=== PATIENT | female | born 1990 ===

== ENCOUNTER 2022-11-21 09:44 | Inpatient (IN) ==
[2022-11-15 11:02] LABS: Basophils # 0.1 10*3/uL (0.0-0.2); Basophils % 0.8 % (0.0-0.8); Eosinophils # 0.2 10*3/uL (0.0-0.87); Eosinophils % 3.3 % (0.00-10.9); Hemoglobin 13.3 GM/DL (12.0-16.0); Immature Granulocytes % 0.6 %; Immature Granulocytes Absolute 0.04 #; Lymphocytes # 2.3 10*3/uL (1.4-4.0); Lymphocytes % 34.8 % (21.3-54.2); Mean Corpuscular HGB Conc 33.3 GM/DL (32-36); Mean Corpuscular Volume 89.9 FL (87-102); Mean Platelet Volume 9.3 FL (9.6-12.0); Monocytes # 0.3 10*3/uL (0.11-0.8); Monocytes % 5.3 % (1.7-12.7); Neutrophils % 55.2 % (38.7-73.9); Platelet Count 355 T/CUMM (130-400); Red Blood Count 4.45 MC/CUMM (3.8-5.5); Red Cell Distribution Width 12.3 % (9.3-17.3); White Blood Count 6.46 T/CUMM (4-12)
[2022-11-15 11:12] LABS: Mucus,Urine Occasional /LPF (Occasional); RBC,Urine 1 /HPF (0-4); Squamous Epithelial Cell,Urine Few /HPF (0-10)
[2022-11-15 11:15] LABS: Albumin 3.9 G/DL (3.4-5.0); Bilirubin,Total 0.4 MG/DL (0.20-1.00); Calcium 9.8 MG/DL (8.5-10.1); Risk Ratio 7.16; Total Protein 8.2 G/DL (6.4-8.2); VLDL Cholesterol 65.6 MG/DL
[2022-11-15 11:18] LABS: Bilirubin,Urine Negative (Negative); Blood, Urine Moderate mg/dL (Negative); Glucose,Urine (UA) Negative (Negative); Ketones,Urine Negative (Negative); Nitrite,Urine Negative (Negative); Protein,Urine Trace mg/dL (Negative); Urine Appearance Clear (Clear); Urine Color Yellow (Yellow); Urine Specific Gravity >= 1.030 (1.001-1.035); Urine pH 5.5 (4.5-8.0)
[2022-11-15 11:19] LABS: Urine Urobilinogen 0.2 eU/dL (<2.0)
[~2022-11-21 09:44] MED LIST: LACTATED RINGERS 1,000 ML IV SCH
[2022-11-21] MEDS ORDERED: AMPICILLIN/SULBACTAM 3,000 MG in SODIUM CHLORIDE 0.9% 100 ML IV ONE (10:30)
[2022-11-21] MEDS ORDERED: FAMOTIDINE 20 MG TABLET PO ONE (11:12)
[2022-11-21] MEDS ORDERED: FAMOTIDINE 20 MG TABLET ONE (11:17)
[2022-11-21] MEDS ORDERED: LIDOCAINE 2% 5 ML VIAL ONE (12:59)
[2022-11-21] MEDS ORDERED: fentaNYL 100 MCG/2 ML VIAL ONE ×2 (12:59→14:46)
[2022-11-21] MEDS ORDERED: ROCURONIUM 50 MG/5 ML VIAL IV ONE ×2 (12:59→14:56)
[2022-11-21] MEDS ORDERED: propofoL 200 MG/20 ML VIAL IV ONE (12:59)
[2022-11-21] MEDS ORDERED: ONDANSETRON 4 MG/2 ML VIAL ONE (12:59)
[2022-11-21] MEDS ORDERED: MIDAZOLAM 2 MG/2 ML VIAL ONE (13:00)
[2022-11-21] MEDS ORDERED: SEVOFLURANE 1 UNIT/15 MINUTE INH ONE ×2 (13:09→15:26)
[2022-11-21] MEDS ORDERED: LIDOCAINE 1% 5 ML VIAL ONE (13:24)
[2022-11-21] MEDS ORDERED: BUPIVACAINE MPF 0.25% 30 ML VIAL ONE (13:24)
[2022-11-21] MEDS ORDERED: DEXAMETHASONE 4 MG/1 ML VIAL ONE ×2 (13:24→14:46)
[2022-11-21] MEDS ORDERED: ROPIVACAINE 0.5% 30 ML VIAL ONE (13:26)
[2022-11-21] MEDS ORDERED: SUCCINYLCHOLINE 200 MG/10 ML VIAL ONE (14:21)
[2022-11-21] MEDS ORDERED: LACTATED RINGERS 1,000 ML IV ONE (14:38)
[2022-11-21] MEDS ORDERED: ACETAMINOPHEN INJ 1,000 MG/100 ML VIAL IV ONE (14:48)
[2022-11-21] MEDS ORDERED: GLYCOPYRROLATE 0.4 MG/2 ML VIAL ONE (14:49)
[2022-11-21] MEDS ORDERED: NEOSTIGMINE 10 MG/10 ML VIAL ONE (14:49)
[2022-11-21] MEDS ORDERED: KETOROLAC 30 MG/1 ML VIAL ONE (15:12)
[2022-11-21 15:28] LABS: Protein,Urine Negative (Negative); Urine Appearance Clear (Clear); Urine Color Yellow (Yellow); Urine Specific Gravity 1.015 (1.001-1.035); Urine pH 5.5 (4.5-8.0)
[2022-11-21 15:29] LABS: Bilirubin,Urine Negative (Negative); Blood, Urine Negative (Negative); Glucose,Urine (UA) Negative (Negative); Ketones,Urine Negative (Negative); Nitrite,Urine Negative (Negative); Urine Urobilinogen 0.2 eU/dL (<2.0)
[2022-11-21 15:32] LABS: RBC,Urine <1 /HPF (0-4); Squamous Epithelial Cell,Urine Occasional /HPF (0-10)
[2022-11-21] MEDS ORDERED: ACETAMINOPHEN 325 MG TABLET PO PRN (15:43)
[2022-11-21] MEDS ORDERED: BENZOCAINE/MENTHOL LOZENGE 18/BOX PO PRN (15:43)
[2022-11-21] MEDS ORDERED: MAGNESIUM HYDROXIDE SUSP 30 ML UDCUP PO PRN (15:43)
[2022-11-21] MEDS ORDERED: BISACODYL 10 MG SUPP RECTAL PRN (15:43)
[2022-11-21] MEDS ORDERED: IBUPROFEN 800 MG TABLET PO PRN (15:43)
[2022-11-21] MEDS ORDERED: ONDANSETRON 4 MG/2 ML VIAL IV PRN (16:11)
[2022-11-21] MEDS ORDERED: HYDROmorphone 1 MG/1 ML SYRINGE IV PRN (16:11)
[2022-11-21] MEDS: lisinopriL 20 MG TABLET PO SCH (19:10)
[2022-11-21] MEDS: LACTATED RINGERS 1,000 ML IV SCH (19:11)
[2022-11-21] MEDS ORDERED: KETOROLAC 30 MG/1 ML VIAL IV PRN (20:06)
[2022-11-21] MEDS: HYDROmorphone 1 MG/1 ML SYRINGE IV PRN (20:20)
[2022-11-21] MEDS: ONDANSETRON 4 MG/2 ML VIAL IV PRN (20:21)
[2022-11-21] MEDS: ceFAZolin 2,000 MG/50 ML DUPLEX IV SCH (21:58)
[2022-11-21] MEDS: CLINDAMYCIN INJ 900 MG/50 ML PREMIX IV SCH (22:24)
[2022-11-22] MEDS: HYDROmorphone 1 MG/1 ML SYRINGE IV PRN (00:17)
[2022-11-22] MEDS ORDERED: ACETAMINOPHEN 325 MG TABLET PO PRN (00:47)
[2022-11-22] MEDS: ceFAZolin 2,000 MG/50 ML DUPLEX IV SCH (05:32)
[2022-11-22] MEDS: ONDANSETRON 4 MG/2 ML VIAL IV PRN (05:43)
[2022-11-22 06:00] LABS: Basophils % 0.1 % (0.0-0.8); Hematocrit 36.8 VOL% (35.7-47.0); Hemoglobin 12.5 GM/DL (12.0-16.0); Immature Granulocytes % 0.5 %; Immature Granulocytes Absolute 0.06 #; Lymphocytes # 0.8 10*3/uL (1.4-4.0); Lymphocytes % 6.3 % (21.3-54.2); Mean Corpuscular Volume 89.8 FL (87-102); Mean Platelet Volume 9.5 FL (9.6-12.0); Monocytes # 0.6 10*3/uL (0.11-0.8); Monocytes % 4.9 % (1.7-12.7); Neutrophils % 88.2 % (38.7-73.9); Platelet Count 279 T/CUMM (130-400); Red Cell Distribution Width 11.9 % (9.3-17.3); White Blood Count 12.13 T/CUMM (4-12)
[2022-11-22] MEDS: CLINDAMYCIN INJ 900 MG/50 ML PREMIX IV SCH (06:32)
[2022-11-22] MEDS: lisinopriL 20 MG TABLET PO SCH (08:30)
[2022-11-22] MEDS: DOCUSATE SODIUM 100 MG CAPSULE PO PRN ×2 (08:30→20:28)
[2022-11-22] MEDS: METOCLOPRAMIDE 10 MG TABLET PO SCH ×3 (08:31→23:31)
[2022-11-22] MEDS: LACTATED RINGERS 1,000 ML IV SCH ×3 (10:28→23:46)
[2022-11-23 07:17] VITALS: BP 123/69
[2022-11-23] MEDS: DOCUSATE SODIUM 100 MG CAPSULE PO PRN (09:21)
[2022-11-23] MEDS: lisinopriL 20 MG TABLET PO SCH (09:21)
[2022-11-23] MEDS: METOCLOPRAMIDE 10 MG TABLET PO SCH (09:21)
== END 2022-11-23 14:10 | disposition home or self-care (01) | DRG 983 ==
LOC: N.SDSINP 09:44 → N.OB 16:45
PROVIDERS: ADMIT Obstetrics & Gynecology; ATTEND Obstetrics & Gynecology